=== PATIENT | female | born 1975 | race Caucasian/White ===

== ENCOUNTER 2024-03-25 10:12 | Emergency (ER) | payer BC ==
[~2024-03-25] VITALS: Ht 162.6 cm; Wt 49.9 kg
--- NOTE | 2024-03-25 10:15 | NUR ---
Received pt 49 YRS FEMALE WALING IN FROM HOME C/P PAIN REDNESS AND SWALLEN ON RT LEG CAT BITE ON 03/21/24
--- NOTE | 2024-03-25 10:30 | NUR ---
SEEN BY DR. HSU
[2024-03-25] MEDS ORDERED: AMOX-430 PO (10:52)
--- NOTE | 2024-03-25 10:59 | NUR ---
Patient discharged to home in stable condition. Written and verbal after care instructions given. Patient verbalizes understanding of instruction.
[2024-03-25 11:05] VITALS: BP 114/86; TEMP 99; O2SAT 99
== END 2024-03-25 11:06 | disposition home or self-care (01) ==
LOC: ER 10:12
DX: S81.851A Open bite, right lower leg, initial encounter (principal); L03.115 Cellulitis of right lower limb; W55.01XA Bitten by cat, initial encounter; Y93.89 Activity, other specified; Y92.89 Other specified places as the place of occurrence of the external cause; Y99.8 Other external cause status